=== PATIENT | male | born 1960 | race Caucasian/White ===

== ENCOUNTER 2020-01-30 07:52 | Emergency (ER) | payer BC ==
[~2020-01-30] VITALS: Ht 162.6 cm; Wt 72.6 kg
[2020-01-30 07:58] VITALS: BP 165/81
--- NOTE | 2020-01-30 08:00 | NUR ---
ED Nurse Note: pt relates as in triage. no dyspnea noted. pt relates he has had antibiotics in the past month but they are not resolving sore throat. states last fever yest treated with tylenol
--- NOTE | 2020-01-30 08:28 | NUR ---
ED Nurse Note: radiology notified to do pcxr
--- NOTE | 2020-01-30 08:28 | Emergency Room Report ---
History of Present Illness General Chief Complaint: Sore Throat Source: Patient Present Illness HPI Patient is a 60-year-old male who presents after persistent sore throat for approximate 1 month. Reports having some fever last night denies any shortness of breath or cough. Denies any exertional symptoms. Denies any leg pain or swelling. Reports having recent antibiotic use. Reports having increased nasal congestion without anosmia. He had been previously given Augmentin by his physician. Denies feeling dizzy or lightheaded.Patient currently works in a restaurant. He denies any vomiting or diarrhea. Allergies: Coded Allergies: No Known Allergies (Unverified , 01/30/20) COVID-19 Screening Contact w/high risk pt: No Recent Travel to affected area: No Experienced COVID-19 symptoms?: Yes COVID-19 symptoms experienced: Fever (T>100.4F or >38C) Patient History Past Medical History: see triage record Reviewed Nursing Documentation: PMH: Agreed Nursing Documentation-PMH Past Medical History: No Stated History Review of Systems All Other Systems: negative except mentioned in HPI Physical Exam Vital Signs Date Time Temp Pulse Resp B/P (MAP) Pulse Ox O2 Delivery O2 Flow Rate FiO2 01/30/20 07:43 98.4 99 20 165/81 (109) 98 Room Air General Appearance: well appearing, no apparent distress, alert, GCS 15 Head: normocephalic, atraumatic ENT: hearing grossly normal, normal voice Neck: full range of motion, supple Respiratory: chest non-tender, lungs clear, no respiratory distress, speaking full sentences Cardiovascular #1: normal peripheral pulses Gastrointestinal: normal inspection Musculoskeletal: normal inspection, no calf tenderness Neurologic: alert, motor strength/tone normal, binder stripper hand III-XII nml as tested, normal gait Psychiatric: normal inspection, mood/affect normal Skin: no rash Medical Decision Making Diagnostic Impression: Primary Impression: Pharyngitis ER Course Patient presented for sore throat. Differential diagnosis included but was not limited to meningitis, exudative tonsillitis, retropharyngeal abscess, epiglottitis, strep pharyngitis. Patient presented with what appears to be a viral sore throat. Given current prevalence of coronavirus patient was advised to self quarantine. Chest x-ray was ordered. Chest x-ray 1 view interpreted by radiology showed normal cardiac size without evident infiltrate. Patient was advised to return if he had any worsening shortness of breath dizziness or other concerns. She was given prescription for oral antibiotics. This medical record is generated with [employer] senior assistant manager software. There may be some senior assistant manager discrepancies related to use of this software Last Vital Signs Date Time Temp Pulse Resp B/P (MAP) Pulse Ox O2 Delivery O2 Flow Rate FiO2 01/30/20 07:58 98.4 99 20 165/81 98 Room Air Status: improved Disposition: HOME, SELF-CARE Condition: Stable Scripts Famotidine* (Pepcid 20mg tablet*) 20 Mg Tablet 20 MG ORAL DAILY, #30 TAB 0 Refills Prov: Bhupinder Kapoor MD 01/30/20 Azithromycin* (ZITHROMAX*) 250 Mg Tablet 250 MG ORAL DAILY, #6 TAB 0 Refills Take two tables once daily for 1 day, then one tablet once daily for 4 days. Prov: Bhupinder Kapoor MD 01/30/20 Referrals: NON PHYSICIAN (PCP) Bhupinder Kapoor MD Jan 30, 2020 08:28
[2020-01-30] MEDS ORDERED: FAMOTIDINE20 MG ORAL (08:51)
[2020-01-30] MEDS ORDERED: ZITHROMAX250 MG ORAL (08:51)
--- NOTE | 2020-01-30 09:00 | NUR ---
ED Nurse Note: Pt cleared by health care Provider for discharge. DC instructions/prescription sent electronically was given and explained to pt and verbalized understanding of teachings. All medical devices such as ID band removed. Pt is AAO x4, ambulatory and left with all personal belongings. no dyspnea upon dc
[2020-01-30 09:01] VITALS: BP 165/81
--- NOTE | 2020-01-30 09:43 | Diagnostic Imaging Report ---
Indication: Shortness of breath Technique: One view of the chest Comparison: none Findings: Lungs and pleural spaces are clear. Heart size is normal. Impression: No acute process
== END 2020-01-30 09:02 | disposition home or self-care (01) ==
LOC: EDSEX 07:52 → EMR 08:13
DX: J02.9 Acute pharyngitis, unspecified (principal); R50.9 Fever, unspecified
CPT/HCPCS: 71045; 99283